=== PATIENT | female | born 1970 ===

== ENCOUNTER 2018-03-29 08:39 | Emergency (ER) | payer MEDICAID, OTHER ==
[2018-03-29 09:05] VITALS: O2SAT 99
--- NOTE | 2018-03-29 09:31 | ED PDOC ---
Upper Extremity Pain/Injury Time Seen by Provider: 03/29/18 09:12 Chief Complaint (Nursing): Upper Extremity Problem/Injury Chief Complaint (Provider): Upper Extremity Problem/Injury History Per: Patient History/Exam Limitations: no limitations Onset/Duration Of Symptoms: Days (x1) Additional Complaint(s): 47 years old female with no significant pmhx presents to ER for evaluation of sudden onset of left sided neck pain radiating to left shoulder. Patient reports pain woke her up at 3 am and states she never had this pain before. She states she was carrying her grandchild yesterday when going through a doorway she hit the door on left shoulder. Patient reports pain was mild then but worsened this morning. She is unable to abduct the left arm or turn head. Patient denies any fever, nausea or loss of consciousness. PMD: non provided Past Medical History Reviewed: Historical Data, Nursing Documentation, Vital Signs Vital Signs: Last Vital Signs Temp 97.0 F L 03/29/18 09:01 Pulse 70 03/29/18 09:01 Resp 16 03/29/18 09:01 BP 152/82 H 03/29/18 09:01 Pulse Ox 99 03/29/18 09:01 - Medical History PMH: No Chronic Diseases - Surgical History Surgical History: No Surg Hx - Family History Family History: States: Unknown Family Hx - Home Medications Home Medications: Ambulatory Orders Medication Instructions Recorded Cyclobenzaprine [Cyclobenzaprine 10 mg PO TID #20 tab 06/24/15 HCl] Ibuprofen [Motrin] 600 mg PO Q6 #20 tab 06/24/15 - Allergies Allergies/Adverse Reactions: Allergies Allergy/AdvReac Type Severity Reaction Status Date / Time No Known Allergies Allergy Unverified 01/08/14 19:50 Review of Systems ROS Statement: Except As Marked, All Systems Reviewed And Found Negative Constitutional: Negative for: Fever Gastrointestinal: Negative for: Nausea Musculoskeletal: Positive for: Neck Pain (left sided), Shoulder Pain (Left) Physical Exam - Reviewed Nursing Documentation Reviewed: Yes Vital Signs Reviewed: Yes - Physical Exam Appears: Positive for: Non-toxic, No Acute Distress Head Exam: Positive for: ATRAUMATIC, NORMOCEPHALIC Skin: Positive for: Normal Color, Warm, Dry Neck: Negative for: Normal (Positive tenderness to palpation along the lateral left side of the neck) Cardiovascular/Chest: Positive for: Regular Rate, Rhythm. Negative for: Murmur Respiratory: Positive for: Normal Breath Sounds. Negative for: Wheezing Extremity: Positive for: Tenderness (to palpation along the superior trapezius. Unable to abduct left arm), Other (anterior and posterior movement of left shoulder intact). Negative for: Normal ROM (Passive movement of left shoulder limited to pain) Neurologic/Psych: Positive for: Alert, Oriented (x3) - ECG O2 Sat by Pulse Oximetry: 99 (RA) Pulse Ox Interpretation: Normal Medical Decision Making Medical Decision Making: Time: 915 --Workup for service cervicalgia vs. bony injury --Toradol and flexeril for pain --Left shoulder and neck x-rays --Reassess patient 1157 Shoulder x-ray FINDINGS: BONES: Normal. No fracture. JOINTS: Normal. Glenohumeral and acromioclavicular joints preserved. No osteoarthritis. SOFT TISSUES: Normal. OTHER FINDINGS: Evidence of calcific tendinopathy. IMPRESSION: No acute findings related to/accounting for the clinical presentation. 1158 Spine x-ray FINDINGS: BONES: Alignment maintained. No fracture. Dens Intact. DISC SPACES: Normal. SOFT TISSUES: Normal. No prevertebral soft tissue swelling. OTHER FINDINGS: None. IMPRESSION: Normal cervical spine radiographs 1208 Images show no acute injury and patient reports improvement of pain on Toradol and Flexeril. Patient is medically stable for discharge with a prescription of Flexeril and Naproxen and instructed to follow up with PMD. Scribe Attestation: Documented by Tonja Richard, acting as a scribe for Alice Crowder MD. Provider Scribe Attestation: All medical record entries made by the Scribe were at my direction and personally dictated by me. I have reviewed the chart and agree that the record accurately reflects my personal performance of the history, physical exam, medical decision making, and the department course for this patient. I have also personally directed, reviewed, and agree with the discharge instructions and disposition. Disposition - Clinical Impression Clinical Impression: Muscle spasm - Patient ED Disposition Is Patient to be Admitted: No - Disposition Disposition: Routine/Home Disposition Time: 12:08 Condition: STABLE Forms: [employer] ([place])
[2018-03-29 11:56] VITALS: BP 139/89; PULSE 67; RESP 18; TEMP 97.8
--- NOTE | 2018-03-29 12:01 | RAD ---
Date of service: 03/29/2018 PROCEDURE: Radiographs of the Left Shoulder HISTORY: left shoulder pain COMPARISON: No prior. FINDINGS: BONES: Normal. No fracture. JOINTS: Normal. Glenohumeral and acromioclavicular joints preserved. No osteoarthritis. SOFT TISSUES: Normal. OTHER FINDINGS: Evidence of calcific tendinopathy. IMPRESSION: No acute findings related to/accounting for the clinical presentation.
--- NOTE | 2018-03-29 12:02 | RAD ---
Date of service: 03/29/2018 PROCEDURE: Cervical Spine Radiographs. HISTORY: Left shoulder and neck pain. No history of trauma provided COMPARISON: None available. FINDINGS: BONES: Alignment maintained. No fracture. Dens Intact. DISC SPACES: Normal. SOFT TISSUES: Normal. No prevertebral soft tissue swelling. OTHER FINDINGS: None. IMPRESSION: Normal cervical spine radiographs
== END 2018-03-29 12:19 | disposition home or self-care (01) ==
LOC: H.ER 08:39
DX: M62.838 Other muscle spasm (principal)
CPT/HCPCS: 72052; 73030; 96372; 99283; J1885